=== PATIENT | male | born 1985 | race Caucasian/White ===

== ENCOUNTER 2020-08-28 15:15 | Emergency (ER) | payer BC ==
[~2020-08-28] VITALS: Ht 175.3 cm; Wt 82.0 kg
--- NOTE | 2020-08-28 15:34 | NUR ---
PT IS A 34M BIB EMS WITH COMPLAINTS OF A SYNCOPAL EPISODE ABOUT 0800 THIS MORNING WHILE SITTING AT HIS DESK AT WORK. HE WORKS IN A [place]. DURING THIS EPISODE HE WAS NAUSEOUS, COLD AND CLAMMY. THIS EPISODE LASTED ABOUT 60 SECONDS. AFTER THAT HE WAS CONFUSED AND WEAK AND DOES NOT REMEMBER MUCH OF THAT TIME. HE ESTIMATES HE STARTED FEELING BACK TO NORMAL ABOUT 11:00AM. HE WAS TRANSFERED TO [facility] WHERE HE WAS WORKED UP THEN TRANSFERRED HERE FOR EVALUATION. HE IS A RESIDENT OF [facility]. DIRECTOR OF PROGRAMMING, SP02 AND BP MONITORS IN PLACE. CALL LIGHT WITHIN REACH.
[2020-08-28] MEDS ORDERED: FINA1TAB16 PO (15:39)
--- NOTE | 2020-08-28 15:44 | NUR ---
PT WAS GIVEN 325MG ASPIRIN BEFORE TRANSFER AND 1L NS AT [facility] BEFORE TRANSFER.
[2020-08-28 16:47] LABS: TROPONIN I < 0.015 ng/mL (0.000-0.045)
--- NOTE | 2020-08-28 16:50 | NUR ---
PT IS RESTING COMFORTABLY ON THE GURNEY TALKING ON HIS CELL PHONE. CALL LIGHT WITHIN REACH. MONITORS IN PLACE.
--- NOTE | 2020-08-28 18:06 | NUR ---
CARE FOR DC PROVIDED. PT SITTING UP ON GURNEY, NO ACUTE DISTRESS NOTED. NO C/O CP. NO SYNCOPAL EPISODES OBSERVED. PT SR PER MONITOR. IV DC'D WITH CANNULA INTACT. REVIEWED DC INSTRUCTIONS WITH PT. UNDERSTANDING VERBALIZED. PT LEFT AMB, GAIT STEADY. PTS TO TRANSPORT PT.
[2020-08-28 18:08] VITALS: BP 132/91
== END 2020-08-28 18:12 | disposition home or self-care (01) ==
LOC: ED 18:05
DX: R55 Syncope and collapse (principal); R42 Dizziness and giddiness
CPT/HCPCS: 36415; 84484; 93005; 99284

== ENCOUNTER 2020-10-25 16:43 | Emergency (ER) | payer BC ==
[~2020-10-25] VITALS: Ht 175.3 cm; Wt 85.7 kg
[~2020-10-25 16:43] MED LIST: FINA1TAB16 PO
--- NOTE | 2020-10-25 18:36 | NUR ---
TASK RN: PT AMBULATORY FROM [facility]. C/O N/V/D AND LEMONS SINCE 10/24. ALL MONITORS PLACED, ASSESSMENT NOTED. PIV EST AND LABS DRAWN. CALL LIGHT W/I REACH. PROVIDER EVAL PENDING
[2020-10-25] MEDS ORDERED: FAMOTIDINE 20 MG/2 ML ONE (18:58)
[2020-10-25] MEDS ORDERED: ONDANSETRON 2MG/ML, 2ML ONE (18:58)
[2020-10-25] MEDS ORDERED: SODIUM CHLORIDE 0.9% 1,000ML IVBOLUS ONE ×2 (19:00→20:30)
[2020-10-25] MEDS ORDERED: SODIUM CHLORIDE FLUSH 10ML SYR IVF ONE (19:00)
[2020-10-25] MEDS ORDERED: ONDANSETRON 2MG/ML, 2ML IVPush ONE ×2 (19:00→21:00)
[2020-10-25] MEDS ORDERED: FAMOTIDINE 20 MG/2 ML IVPush ONE (19:00)
[2020-10-25 19:13] LABS: BASOPHILS % (AUTO) 0 % (0-1); EOSINOPHILS % (AUTO) 0 % (1-7); LYMPHOCYTES % (AUTO) 6 % (22-44); MEAN CORPUSCULAR HEMOGLOBIN 30.1 pg (27.5-34.5); MEAN CORPUSCULAR HGB CONC 34.7 g/dL (33.2-36.2); MEAN PLATELET VOLUME 6.8 fL (7.4-10.4); MONOCYTES % (AUTO) 5 % (2-9); NEUTROPHILS % (AUTO) 89 % (42-75); PLATELET COUNT 266 x10^3/uL (130-400); RED BLOOD COUNT 5.99 x10^6/uL (4.38-5.82); RED CELL DISTRIBUTION WIDTH 13.7 % (9.4-14.8)
[2020-10-25 19:25] LABS: ALANINE AMINOTRANSFERASE 56 U/L (12-78); ALBUMIN 4.3 g/dL (3.4-5.0); ANION GAP 7 mmol/L (5-15); CALCIUM 8.8 mg/dL (8.5-10.1); CHLORIDE 105 mmol/L (98-107); CREATININE 1.16 mg/dL (0.7-1.3)
[2020-10-25 19:27] LABS: ALKALINE PHOSPHATASE 97 U/L (45-117); BILIRUBIN,TOTAL 1.3 mg/dL (0.2-1.0); TOTAL PROTEIN 8.1 g/dL (6.4-8.2)
[2020-10-25 19:52] LABS: MD SCAN
--- NOTE | 2020-10-25 20:17 | NUR ---
NO CHANGE, PT IN GOOD CONDITION, A&OX4, SAYS HE FEELS BETTER. IVF INFUSING.
--- NOTE | 2020-10-25 22:00 | NUR ---
REPORT FROM MICHELLE BURCH
--- NOTE | 2020-10-25 22:52 | NUR ---
WITH REASSESSMENT PAIN/NAUSEA IMPROVED TOLERATING PO FLUIDS VSS ERP MADE AWARE
--- NOTE | 2020-10-25 23:23 | NUR ---
Assist RN: re-evaluation done. patient discharged with prescription and instruction. verbalized understanding.
[2020-10-25 23:25] VITALS: BP 129/68
== END 2020-10-25 23:27 | disposition home or self-care (01) ==
LOC: ED 19:20
DX: R11.2 Nausea with vomiting, unspecified (principal); E86.0 Dehydration; R19.7 Diarrhea, unspecified
CPT/HCPCS: 36415; 80053; 83690; 85025; 93005; 96361; 96374; 96375; 99284; J2405; J7030